=== PATIENT | female | born 1975 | race Caucasian/White ===

== ENCOUNTER 2017-10-14 14:20 | Emergency (ER) | payer OTHER ==
[2017-10-14 14:31] VITALS: RESP 16
[2017-10-14 14:55] LABS: PLATELET COUNT 289 10^3/uL (150-400)
[2017-10-14] MEDS ORDERED: NS 1,000 ML IV ONE (15:01)
--- NOTE | 2017-10-14 15:05 | EDPHY ---
H & P Time Seen by Provider: 10/14/17 14:58 HPI/ROS: HPI Lower abdominal pain. 42-year-old female by private vehicle with . This patient reports that 2 days ago she developed right lower quadrant pain which she describes as dull and aching intermittent. She reports that since 12 noon today it has been more intense and constant. No associated nausea or vomiting. Last menstrual period was about a week ago. No urinary complaints. No diarrhea. No bloody or melenic stool. Prior abdominal surgery includes . ROS: Constitutional: No fever, no chills. No weakness. Eyes: No discharge. No changes in vision. ENT: No sore throat. No nasal congestion or rhinorrhea. Respiratory: No cough. No shortness of breath. Cardiac: No chest pain, no palpitations. Gastrointestinal: As above, no vomiting, no diarrhea. Genitourinary: No hematuria. No dysuria or increased frequency with urination. Musculoskeletal: No back pain. No neck pain. No myalgias or arthralgias. Skin: No rashes. Neurological: No headache. No focal weakness or altered sensation. Past medical history: . Social history: Nonsmoker. No alcohol. Here with . Physical Exam: General Appearance: Alert, no distress. This patient is responding to questions appropriately and in full sentences. This patient appears well- hydrated and well-nourished. Eyes: Pupils equal and round no pallor or injection. No lid edema, erythema or injection. Respiratory: There are no retractions, lungs are clear to auscultation with good air movement bilaterally. Cardiovascular: Regular rate and rhythm. No murmur. Gastrointestinal: Abdomen is soft with mild to moderate vague right lower quadrant tenderness on palpation, no masses, bowel sounds normal. No focal tenderness at McBurney's point. No Quintana sign. Neurological: Motor sensory function is grossly intact. Cranial nerves are normal. Gait is normal. Skin: Warm and dry, no rashes. Musculoskeletal: Neck is supple and nontender. Extremities are symmetrical. All joints range without pain or impingement. Psychiatric: No agitation. No depression. Database: EKG: Imaging: CT scan of abdomen and pelvis with IV contrast: The appendix is well visualized and is normal. The ovaries are unremarkable. Constipation noted. This study is otherwise normal. Results were discussed with staff radiologist Dr. Praful Merino. Procedures: Emergency department course: Vital signs reviewed and are normal. Patient started on IV normal saline with 500 cc to 1 L to be given over the next hour. I discussed CT imaging to evaluate for possible appendicitis. She consents. At this time she is not asking for pain medication or antiemetics. 3:45 p.m., patient re-evaluated. Resting comfortably at this time. Repeat abdominal exam she is soft, nontender nondistended. I discussed the results of her CT scan as well as blood work and urinalysis. I discussed management of constipation. She feels comfortable going home with her . Follow-up and return to emergency department precautions reviewed. All of their questions were answered. She was discharged in good condition. Differential Diagnosis: The differential diagnosis on this patient includes but is not limited to constipation, urinary tract infection, ureterolithiasis, ectopic , appendicitis, urinary tract infection, ovarian cyst. This represents a partial list of diagnoses considered. These considerations are based on history, physical exam, past history, reassessment and diagnostic testing. Smoking Status: Never smoked Constitutional: Initial Vital Signs Temperature (C) 36.3 C 10/14/17 14:26 Heart Rate 53 L 10/14/17 14:26 Respiratory Rate 16 10/14/17 14:26 Blood Pressure 111/80 10/14/17 14:26 O2 Sat (%) 99 10/14/17 14:26 O2 Delivery Mode Room Air Allergies/Adverse Reactions: No Known Allergies Allergy (Verified 10/14/17 14:26) Home Medications: Medication Instructions Recorded NK [No Known Home Meds] 10/14/17 Medical Decision Making - Data Points Laboratory Results: Laboratory Results 10/14/17 14:45 10/14/17 14:45 10/14/17 10/14/17 10/14/17 15:10 14:45 14:45 WBC RBC Hgb Hct MCV MCH MCHC RDW Plt Count MPV Neut % (Auto) Lymph % (Auto) Garza % (Auto) Eos % (Auto) Baso % (Auto) Nucleat RBC Rel Count Absolute Neuts (auto) Absolute Lymphs (auto) Absolute Monos (auto) Absolute Eos (auto) Absolute Basos (auto) Absolute Nucleated RBC Immature Gran % Immature Gran # Sodium 140 mEq/L mEq/L (135-145) Potassium 3.6 mEq/L mEq/L (3.5-5.2) Chloride 101 mEq/L mEq/L (97-110) Carbon Dioxide 25 mEq/l mEq/l (22-31) Anion Gap 14 mEq/L mEq/L (8-16) BUN 21 mg/dL mg/dL (7-23) Creatinine 0.8 mg/dL mg/dL (0.6-1.0) Estimated GFR > 60 Glucose 90 mg/dL mg/dL (70-100) Calcium 9.0 mg/dL mg/dL (8.5-10.4) Total Bilirubin 0.3 mg/dL mg/dL (0.1-1.4) AST 24 IU/L IU/L (14-46) ALT 34 IU/L IU/L (9-52) Alkaline Phosphatase 57 IU/L IU/L (38-126) Total Protein 7.3 g/dL g/dL (6.3-8.2) Albumin 4.3 g/dL g/dL (3.5-5.0) Beta HCG, Qual NEGATIVE Urine Color YELLOW Urine Appearance CLEAR Urine pH 6.5 (5.0-7.5) Ur Specific [place] 1.010 (1.002-1.030) Urine Protein NEGATIVE (NEGATIVE) Urine Ketones NEGATIVE (NEGATIVE) Urine Blood NEGATIVE (NEGATIVE) Urine Nitrate NEGATIVE (NEGATIVE) Urine Bilirubin NEGATIVE (NEGATIVE) Urine Urobilinogen 0.2 EU EU (0.2-1.0) Ur Leukocyte Esterase NEGATIVE (NEGATIVE) Urine RBC NONE SEEN /hpf /hpf (0-3) Urine WBC NONE SEEN /hpf /hpf (0-3) Ur Epithelial Cells TRACE /lpf /lpf (NONE-1+) Urine Glucose NEGATIVE (NEGATIVE) 10/14/17 14:45 WBC 8.09 10^3/uL 10^3/uL (3.80-9.50) RBC 4.76 10^6/uL 10^6/uL (4.18-5.33) Hgb 14.5 g/dL g/dL (12.6-16.3) Hct 43.1 % % (38.0-47.0) MCV 90.5 fL fL (81.5-99.8) MCH 30.5 pg pg (27.9-34.1) MCHC 33.6 g/dL g/dL (32.4-36.7) RDW 12.3 % % (11.5-15.2) Plt Count 289 10^3/uL 10^3/uL (150-400) MPV 9.1 fL fL (8.7-11.7) Neut % (Auto) 69.6 % % (39.3-74.2) Lymph % (Auto) 23.5 % % (15.0-45.0) Garza % (Auto) 5.1 % % (4.5-13.0) Eos % (Auto) 0.7 % % (0.6-7.6) Baso % (Auto) 0.9 % % (0.3-1.7) Nucleat RBC Rel Count 0.0 % % (0.0-0.2) Absolute Neuts (auto) 5.63 10^3/uL 10^3/uL (1.70-6.50) Absolute Lymphs (auto) 1.90 10^3/uL 10^3/uL (1.00-3.00) Absolute Monos (auto) 0.41 10^3/uL 10^3/uL (0.30-0.80) Absolute Eos (auto) 0.06 10^3/uL 10^3/uL (0.03-0.40) Absolute Basos (auto) 0.07 10^3/uL 10^3/uL (0.02-0.10) Absolute Nucleated RBC 0.00 10^3/uL 10^3/uL (0-0.01) Immature Gran % 0.2 % % (0.0-1.1) Immature Gran # 0.02 10^3/uL 10^3/uL (0.00-0.10) Sodium Potassium Chloride Carbon Dioxide Anion Gap BUN Creatinine Estimated GFR Glucose Calcium Total Bilirubin AST ALT Alkaline Phosphatase Total Protein Albumin Beta HCG, Qual Urine Color Urine Appearance Urine pH Ur Specific [place] Urine Protein Urine Ketones Urine Blood Urine Nitrate Urine Bilirubin Urine Urobilinogen Ur Leukocyte Esterase Urine RBC Urine WBC Ur Epithelial Cells Urine Glucose Medications Given: Discontinued Medications Sodium Chloride (Ns) 1,000 mls @ 0 mls/hr IV EDNOW ONE; Wide Open PRN Reason: Protocol Stop: 10/14/17 15:02 Last Admin: 10/14/17 15:12 Dose: 1,000 mls Departure - Departure Disposition: Home, Routine, Self-Care Clinical Impression: Right lower quadrant abdominal pain, Constipation Condition: Good Instructions: Acute Abdominal Pain (ED), High Fiber Diet (ED), Constipation (ED ) Additional Instructions: Read and follow provided instructions. Follow-up with your primary care physician in 2-3 days for re-evaluation. Ibuprofen dosin mg every 6 hours with meals for the next 3 days only. Take only as needed for pain. Return to the emergency department for worsening pain, blood in your stool, fever, vomiting or other serious concerns. Referrals: Monica Rivera, [facility] [Primary Care Provider] - As per Instructions
[2017-10-14] MEDS ORDERED: IOPAMIDOL (ISOVUE-300) 100 ML BTL ONE (15:08)
[2017-10-14 16:21] VITALS: BP 109/61; PULSE 57; TEMP 98.1; O2SAT 95
== END 2017-10-14 16:21 | disposition home or self-care (01) ==
LOC: CED 14:20
DX: K59.00 Constipation, unspecified (principal); E86.9 Volume depletion, unspecified
CPT/HCPCS: 74177-PO; 80053-PO; 81003-PO; 81015-PO; 84703-PO; 85025-PO; Q9967

== ENCOUNTER → 2017-12-21 | Outpatient (CLI) | payer OTHER | LOC: CIMAGING 16:02 | PROVIDERS: ATTEND Family Medicine | DX: S69.90XA Unspecified injury of unspecified wrist, hand and finger(s), initial encounter (principal); X50.0XXA Overexertion from strenuous movement or load, initial encounter | CPT/HCPCS: 73130-PO ==